=== PATIENT | female | born 1970 | race Caucasian/White ===

== ENCOUNTER 2025-03-11 13:03 | Outpatient (CLI) | payer BC, SELFPAY ==
--- OUTSIDE RECORDS SUMMARY | 2025-03-11 13:06 | XMS_ITS | Encounter Summary ---
Author Organization [facility] Address [facility] [place] [address] Care Team Providers Care German Instructor Name Role Phone Giovanny Medina MD Primary Care Provider [phone] Loren Whitlock RN Unavailable [phone] Madisyn Ennis MD Unavailable [phone] GeoffreyEmmett MD Primary Care Provider [phone] Giovanny Medina MD Unavailable [phone] Encounter Details Date Type Department Care Team (Late st Contact Info) Description 10/19/2014 Therapy Visit EXTERNAL NON-[facility] DEPT Unknown, Provider Social History Tobacco Use Types Packs/Day Years Used Date Smoking Tobacco: Former Cigarettes 0.5 11 0 12/23/2000 - 12/24/2011 Alcohol Use Standard Drinks/Week Comments Yes 0 (1 standard drink = 0.6 oz pur e alcohol) rare Comments No Sex and Gender Information Value Date Recorded Sex Assigned at Female 11/29/2021 8:25 AM CDT 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 Answer Date of Assessment Author No 04/13/2014 5:45 PM CDT Joseluis Herrmann RN * Is person blind or have serious difficulty seeing? Answer Date of Assessment Author No 04/13/2014 5:45 PM CDT Joseluis Herrmann RN * Does person have serious difficulty walking/climbing stairs? Answer Date of Assessment Author No 04/13/2014 5:45 PM CDT Joseluis Herrmann RN * Does person have difficulty dressing/bathing? Answer Date of Assessment Author No 04/13/2014 5:45 PM CDT Joseluis Herrmann RN * Does person have difficulty doing errands alone? Answer Date of Assessment Author No 04/13/2014 5:45 PM CDT Joseluis Herrmann RN documented as of this encounter Mental Status * Does person have difficulty concentrating/remembering/making decisions? Answer Entry Date Author No 04/13/2014 5:45 PM Joseluis Wallace RN documented in this encounter Plan of Treatment Not on file documented as of this encounter Goals Goal Patient Goal Type Associated Problems Recent Progress Patient-Stated? Author Have labs drawn Lifestyle On track(10/16/19 15 3:58 PM CDT) No Chanda Palma MA documented as of this encounter Visit Diagnoses Not on filedocumented in this encounter Care Teams German Instructor Relationship Specialty Start Date End Date Giovanny Medina MD [address] [place] [address] PCP - General 12/27/11 03/28/17 Emmett Hale MD [address] [facility] [place] [address] PCP - General Family Medicine 03/29/17 Giovanny Medina MD [address] [place] [address] PCP - Attributed-[facility] Commercial 11/02/18 11/02/18 Loren Whitlock RN Interpreter For The Deaf 04/13/14 Madisyn Ennis MD [address] [facility] [address] [place] [phone] Orthopedic Surgery 07/28/14 documented as of this encounter
--- OUTSIDE RECORDS SUMMARY | 2025-03-11 13:06 | XMS_ITS | Encounter Summary ---
Author Organization [facility] Address [facility] [place] [address] Care Team Providers Care Sheetmetal Trades Worker Name Role Phone Giovanny Medina MD Primary Care Provider [phone] Loren Whitlock RN Unavailable [phone] Madisyn Ennis MD Unavailable [phone] GeoffreyEmmett MD Primary Care Provider [phone] Giovanny Medina MD Unavailable [phone] Encounter Details Date Type Department Care Team (Late st Contact Info) Description 11/12/2014 Therapy Visit EXTERNAL NON-[facility] DEPT Madisyn Ennis MD [address] [facility] [address] [place] [address] Social History Tobacco Use Types Packs/Day Years Used Date Smoking Tobacco: Former Cigarettes 0.5 11 0 12/23/2000 - 12/24/2011 Alcohol Use Standard Drinks/Week Comments Yes 0 (1 standard drink = 0.6 oz pur e alcohol) rare Comments No Sex and Gender Information Value Date Recorded Sex Assigned at Female 11/29/2021 8:25 AM CDT Legal Sex Female 5:57 AM TRANSCRIPTION TYPIST Gender Identity Female 11/29/2021 8:25 AM CDT [...] Entry Date Author No 04/13/2014 5:45 PM CDT Joseluis Herrmann RN documented in this encounter Plan of Treatment Not on file documented as of this encounter Goals Goal Patient Goal Type Associated Problems Recent Progress Patient-Stated? Author Have labs drawn Lifestyle On track(10/16/19 15 3:58 PM CDT) No Chanda Palma MA documented as of this encounter Visit Diagnoses Not on filedocumented in this encounter Care Teams Sheetmetal Trades Worker Relationship Specialty Start Date End Date Giovanny Medina MD [address] [place] [address] PCP - General 12/27/11 03/28/17 Emmett Hale MD [address] [facility] [address] [place] [phone] PCP - General Family Medicine 03/29/17 Giovanny Medina MD [address] [place] [address] PCP - Attributed-[facility] Commercial 11/02/18 11/02/18 Loren Whitlock, RN Overhead Cleaner Maintainer 04/13/14 Madisyn Ennis MD [address] [facility] [address] [place] [phone] Orthopedic Surgery 07/28/14 documented as of this encounter
--- OUTSIDE RECORDS SUMMARY | 2025-03-11 13:06 | XMS_ITS | Encounter Summary ---
Author Organization [facility] Health Address [facility] [facility] 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 Answer Date of Assessment Author No 04/13/2014 5:45 PM Joseluis Wallace RN * Is person blind or have serious difficulty seeing? Answer Date of Assessment Author No 04/13/2014 5:45 PM Joseluis Wallace RN * Does person have serious difficulty walking/climbing stairs? Answer Date of Assessment Author No 04/13/2014 5:45 PM Joseluis Wallace RN * Does person have difficulty dressing/bathing? Answer Date of Assessment Author No 04/13/2014 5:45 PM Joseluis Wallace RN * Does person have difficulty doing errands alone? Answer Date of Assessment Author No 04/13/2014 5:45 PM Joseluis Wallace RN documented as of this encounter Mental Status * Does person have difficulty concentrating/remembering/making decisions? Answer Entry Date Author No 04/13/2014 5:45 PM Joseluis Wallace RN documented in this encounter Plan of Treatment Not on file documented as of this encounter Visit Diagnoses Not on filedocumented in this encounter Care Teams Physics Professor Relationship Specialty Start Date End Date Giovanny Medina MD [address] [place] [address] PCP - General 12/27/11 03/28/17 Emmett Hale MD [address] [facility] [address] [place] [address] PCP - General Family Medicine 03/29/17 Giovanny Medina MD [address] [place] [address] PCP - Counts Include [facility] Commercial 11/02/18 11/02/18 Loren Whitlock RN Plating Stripper 04/13/14 Madisyn Ennis MD [address] [facility] [address] [place] [address] Orthopedic Surgery 07/28/14 documented as of this encounter
--- OUTSIDE RECORDS SUMMARY | 2025-03-11 13:06 | XMS_ITS | Encounter Summary ---
Author Organization [facility] Health Address [facility] [place] [address] Care Team Providers Care Multiple Resaw Operator Name Role Phone Giovanny Medina MD Primary Care Provider [phone] Loren Whitlock RN Unavailable [phone] Madisyn Ennis MD Unavailable [phone] GeoffreyEmmett ritter MD Primary Care Provider [phone] Giovanny Medina MD Unavailable [phone] Encounter Details Date Type Department Care Team (Late st Contact Info) Description 11/05/2014 [facility] Outpatient Visit [facility] Health Orthopedics [address] [place], [place] [address] Madisyn Ennis MD [address] [place] [address] Social History Tobacco Use Types Packs/Day Years Used Date Smoking Tobacco: Former Cigarettes 0.5 11 0 12/23/2000 - 12/24/2011 Alcohol Use Standard Drinks/Week Comments Yes 0 (1 standard drink = 0.6 oz pur e alcohol) rare Comments No Sex and Gender Information Value Date Recorded Sex Assigned at Female 11/29/2021 8:25 AM CDT Legal Sex Female 5:57 AM MARKETING ANALYTICS SPECIALIST Gender Identity Female 11/29/2021 8:25 AM CDT [...] on filedocumented in this encounter Care Teams Multiple Resaw Operator Relationship Specialty Start Date End Date Giovanny Medina MD [address] [place] [address] PCP - General 12/27/11 03/28/17 Emmett Hale MD [address] [facility] [address] [place] [address] PCP - General Family Medicine 03/29/17 Giovanny Medina MD [address] [facility] [place] [address] PCP - Attributed-[facility] Commercial 11/02/18 11/02/18 Loren Whitlock, RN Arts Manager 04/13/14 Madisyn Ennis MD [address] [place] [phone] Orthopedic Surgery 07/28/14 documented as of this encounter
--- OUTSIDE RECORDS SUMMARY | 2025-03-11 13:06 | XMS_ITS | Encounter Summary ---
Author Organization [facility] Address [address] [place] [address] Care Team Providers Care Missile Technician Name Role Phone GeoffreyEmmett MD Primary Care Provider Encounter Details Date Type Department Care Team (Late st Contact Info) Description 03/10/2025 External Device Data [place] ABSTRACTION Provider, Abstract NO ADDRESS ON FILE Social History Tobacco Use Types Packs/Day Years Used Date Smoking Tobacco: Former Cigarettes 0.3 10 0 01/17/2016 - 07/21/2020 Alcohol Use Standard Drinks/Week Comments Yes 4 (1 standard drink = 0.6 oz pur e alcohol) social Feeling Safe Answer Date Recorded Are you in a relationship wi th someone who hurts you emotionally and/or physically? No 01/04/2024 Comments No Sex and Gender Information Value Date Recorded Sex Assigned at Not on file Legal Sex Female 5:13 AM INSTRUCTIONAL COACH Gender Identity Not on file Sexual Orientation Not on file documented as of this encounter Plan of Treatment Upcoming Encounters Date Type Department Care Team (Late st Contact Info) Description 07/09/2025 9:00 AM INSTRUCTIONAL COACH Office Visit [facility] Primary Care [address] [place] [address] GeoffreyEmmett MD [address] [place] [address] documented as of this encounter Visit Diagnoses Not on filedocumented in this encounter Additional Health Concerns Assessment Noted Time PHQ-9 Depression Total Score: 1 07/15/19 25 3:03 PM INSTRUCTIONAL COACH documented as of this encounter Care Teams Missile Technician Relationship Specialty Start Date End Date GeoffreyEmmett MD [address] [phone] PCP - General Family Practice 04/28/16 documented as of this encounter
--- OUTSIDE RECORDS SUMMARY | 2025-03-11 13:06 | XMS_ITS | Encounter Summary ---
Author Organization [facility] Address [address] [place] [address] Care Team Providers Care Visiting Nurse Name Role Phone Emmett Hale MD Primary Care Provider Encounter Details Date Type Department Care Team (Latest Contact Info) Description 06/06/2005 Outpatient Historical [facility] [place] [address] [place] [address] STREP SORE THROAT (Primary Dx) Social History Tobacco Use Types Packs/Day Years Used Date Smoking Tobacco: Never Assessed Comments Unknown Sex and Gender Information Value Date Recorded Sex Assigned at Not on file Legal Sex Female 5:13 AM FEEDER OPERATOR AUTOMATIC Gender Identity Not on file Sexual Orientation Not on file documented as of this encounter Plan of Treatment Upcoming Encounters Date Type Department Care Team (Late st Contact Info) Description 07/09/2025 9:00 AM FEEDER OPERATOR AUTOMATIC Office Visit [facility] Primary Care [place] [phone] [facility] [address] [place] [address] Emmett Hale MD [address] [facility] [address] [place] [address] documented as of this encounter Visit Diagnoses Diagnosis Streptococcal sore throat- Primary documented in this encounter Additional Health Concerns Infection Onset Date Last Indicated Resolved Time R/O COVID-19 02/16/2021 02/16/2021 02/16/2021 5:22 PM CDT documented as of this encounter Care Teams Visiting Nurse Relationship Specialty Start Date End Date Emmett Hale MD [address] [facility] [address] [place] [phone] PCP - General Family Practice 04/28/16 documented as of this encounter
--- OUTSIDE RECORDS SUMMARY | 2025-03-11 13:06 | XMS_ITS | Encounter Summary ---
Author Organization [facility] Address [address] [place] [address] Care Team Providers Care Sawmill Moulder Operator Name Role Phone Emmett Hale MD Primary Care Provider [phone] Encounter Details Date Type Department Care Team (Latest Contact Info) Description 09/07/2002 Outpatient Historical HIS [facility] Pamela Summers MD ACUTE PHARYNGITIS (Primary Dx) Social History Tobacco Use Types Packs/Day Years Used Date Smoking Tobacco: Never Assessed Comments Unknown Sex and Gender Information Value Date Recorded Sex Assigned at Not on file Legal Sex Female 5:13 AM CREDIT PRODUCTS OFFICER Gender Identity Not on file Sexual Orientation Not on file documented as of this encounter Plan of Treatment Upcoming Encounters Date Type Department Care Team (Late st Contact Info) Description 07/09/2025 9:00 AM CREDIT PRODUCTS OFFICER Office Visit [facility] Primary Care [place] [address] [facility] [address] [place] [address] Emmtet Hale MD [address] [facility] [address] [place] [address] documented as of this encounter Visit Diagnoses Diagnosis Acute pharyngitis- Primary documented in this encounter Additional Health Concerns Infection Onset Date Last Indicated Resolved Time R/O COVID-19 02/16/2021 02/16/2021 02/16/2021 5:22 PM CDT documented as of this encounter Care Teams Sawmill Moulder Operator Relationship Specialty Start Date End Date Emmett Hale MD [address] [facility] [address] [place] [address] PCP - General Family Practice 04/28/16 documented as of this encounter
--- OUTSIDE RECORDS SUMMARY | 2025-03-11 13:06 | XMS_ITS | Clinical Summary ---
Author Organization [facility] Address [address] [place] [address] Care Team Providers Care Emergency Worker Name Role Phone Geoffrey, Emmett Lynn MD Primary Care Provider [phone] Allergies Active Allergy Reactions Criticality Noted Date Comments Levofloxacin Swelling Low 04/28/2016 Lisinopril Cough Low 12/07/2017 TOMAS COUGH Medications Syringe with Needle, Disp, (BD Luer-Zurdo Syringe) 3 mL 25 gauge x 1 Syringe USE 1 EVERY MONTH 1 Each 3 023 Active fezolinetant 45 mg Tablet Take 45 mg by mouth daily. 023 Active calcium citrate 200 mg (950 mg) Tablet Take 400 mg by mouth daily. Active blood sugar diagnostic (OneTouch Verio test strips) StripIndication s:Type 2 diabetes mellitus with diabetic polyneuropathy, without long-term current use of insulin ([facility]) USE ONE TOUCH VERIO TEST STRIPS TWICE DAILY - DX E11.42. 200 Strip 3 025 Active empagliflozin (JARDIANCE) 25 mg tabletIndicatio ns:Type 2 diabetes mellitus with diabetic polyneuropathy, without long-term current use of insulin ([facility]) Take 1 Tablet (25 mg) by mouth daily in the morning. 100 Tablet 3 025 Active fluticasone propionate (Flovent HFA) 44 mcg/Actuation HFA Aerosol InhalerIndicati ons:Mild intermittent asthma without complication Take 2 Puffs by inhalation 2 times daily. 10.6 Gram 5 025 Active levothyroxine 50 mcg tabletIndicatio ns:Hypothyroidi sm, unspecified type Take 1 Tablet (50 mcg) by mouth daily. TAKE 1 TABLET BY MOUTH EVERY DAY IN THE [employer] JUDGE 100 Tablet 3 025 Active venlafaxine (EFFEXOR XR) 150 mg Extended Release 24 hour capsuleIndicati ons:Current moderate episode of major depressive disorder without prior episode (CMS/HCC) Take 1 Capsule (150 mg) by mouth daily. 100 Capsule 3 025 Active traZODone (DESYREL) 50 mg tabletIndicatio ns:Current moderate episode of major depressive disorder without prior episode (CMS/HCC) TAKE 1 TABLET BY MOUTH EVERYDAY AT BEDTIME 100 Tablet 3 025 Active estradioL (ESTRACE) 0.01% (0.1 mg/g) vaginal cream INSERT 1/2 GRAM INTO THE VAGINA AT BEDTIME X 2 WEEKS THEN TWICE A WEEK Active cyclobenzaprine (FLEXERIL) 10 mg tabletIndicatio ns:Lumbar strain, initial encounter Take 1 Tablet (10 mg) by mouth 3 times daily as needed for Discomfort. 30 Tablet 025 Active albuterol sulfate HFA 90 mcg/actuation aerosol inhalerIndicati ons:Mild intermittent asthma without complication Take 2 Puffs by inhalation every 4 hours as needed for Shortness of Breath. 8.5 Gram 5 025 Active semaglutide (Ozempic) 1 mg/dose (4 mg/3 mL) Pen InjectorIndicat ions:Type 2 diabetes mellitus with diabetic polyneuropathy, without long-term current use of insulin ([facility]) INJECT 1 MG SUBCUTANEOUSLY EVERY 7 DAYS 9 mL 1 025 Active ALPRAZolam (XANAX) 0.5 mg tabletIndicatio ns:Anxiety state TAKE 1 TABLET (0.5 MG) BY MOUTH 2 TIMES DAILY NEEDED FOR ANXIETY. TAKE 1 TABLET BY MOUTH #X A DAY NEEDED FOR ANXIETY 40 Tablet 025 Active ALPRAZolam (XANAX) 0.5 mg tabletIndicatio ns:Anxiety state Take 1 Tablet (0.5 mg) by mouth 2 times daily as needed for Anxiety. TAKE 1 TABLET BY MOUTH #X a day as needed for anxiety 40 Tablet 5 025 2024 Discontinued Active Problems Problem Noted Date Diagnosed Date Type 2 diabetes mellitus wit hout complication, without long-term current use of insulin 02/10/2022 Intestinal malabsorption following gastrectomy 0 07/14/2021 Current moderate episode of major depressive disorder without prior episode 05/30/2021 S/P gastric bypass 01/26/2021 Assessment & Plan (12/31/2024 9:50 AM CDT): - Patient is unable to take ibuprofen or Aleve secondary to gastric bypass Acquired hypothyroidism 05/24/2016 Resolved Problems Problem Noted Date Diagnosed Date Resolved Date Prediabetes 02/10/2022 02/10/2022 Chronic bilateral low back pain 07/15/2021 01/11/2022 Obesity (BMI 30.0-34.9) 06/21/202112/17 Asthma 08/11/2019 08/11/2019 Asthma 08/11/2019 01/11/2022 Type 2 diabetes mellitus wit h diabetic polyneuropathy, with long-term current use of insulin 05/27/2018 01/11/2022 Migraine without aura and wi thout status migrainosus, not intractable 12/07/2017 01/11/2022 Morbid obesity with body mas s index of 40.0-49.9 12/07/2017 06/21/2021 Cigarette dependence 03/03/2017 022 Severe obesity (BMI 35.0-39. 9) with comorbidity 03/03/2017 03/03/2017 Non morbid obesity due to excess calories 03/03/2017 12/07/2017 Type 2 diabetes mellitus wit hout complication, with long-term current use of insulin 05/24/2016 05/27/2018 Morbid obesity with body mas s index of 40.0-49.9 05/24/2016 03/03/2017 Backache 03/05/2009 07/15/2021 Insulin dose changed 021 Exertional dyspnea LUANA (obstructive sleep apnea) 01/11/2022 Hyperlipidemia 01/11/2022 Encounters Date Type Department Care Team Description 03/10/2025 External Device Data [facility] ABSTRACTION Provider, Abstract 03/10/2025 External Device Data [facility] ABSTRACTION Provider, Abstract 03/06/2025 Telephone [facility] [address] [place] [phone] Emmett Hale MD Medication Authorization 02/19/2025 Refill [facility] [address] [address] Emmett Hale MD Anxiety state 02/18/2025 External Device Data [facility] ABSTRACTION Provider, Abstract 02/05/2025 Refill [facility] Same Day [address] [address] Nydia Cunningham PA-C Lumbar strain, initial encounter 02/05/2025 Refill [facility] [address] [address] Emmett Hale MD Type 2 diabetes mellitus with diabetic polyneuropathy, without long-term current use of insulin ([facility]) 01/27/2025 Telephone [facility] Care [address] [address] Emmett Hale MD Medication Assistance 01/24/2025 Refill [facility] Care [address] [address] Emmett Hale MD Mild intermittent asthma without complication 01/21/2025 External Device Data [facility] ABSTRACTION Provider, Abstract 01/15/2025 Results Follow-Up [facility] [address] [address] Nydia Cunningham PA-C XR KNEE 3 VW LEFT, XR LUMBAR SPINE 4+ VW 01/14/2025 4:05 PM CDT - 01/14/2025 11:59 PM CDT Hospital Encounter [facility] [place] [address] [place] [phone] Nydia Cunningham PA-C Houser, Michael K, MD Discharge Disposition: Home or Self Care 12/31/2024 9:00 AM CDT Office Visit [facility] Same Day [place] [id number] [place] [address] Nydia Cunningham PA-C Chronic pain of left knee (Primary Dx); Lumbar strain, initial encounter; S/P gastric bypass 12/31/2024 External Device Data [facility] ABSTRACTION Provider, Abstract 12/31/2024 External Device Data [facility] ABSTRACTION Provider, Abstract 12/23/2024 Telephone [facility] [address] [place] [address] [address] [place] [address] Gisele Ramirez NP Appointment Correction 12/15/2024 Telephone [facility] [address] [place] [address] Geoffrey, Emmett Lynn MD Clinical Consult Before Scheduling from Last 3 Months Immunizations Immunization Administration Dates Next Due (ADACEL/BOOSTRIX)(10 YR UP) TDAP VACCINE, 0.5ML, IM 06/06/2011 (PREVNAR 20)(6 WKS UP) PNEUM OCOCCAL CONJUGATE VACCINE 20-VALENT (PCV20), POLYSACCHARIDE [id number] CONJUGATE, ADJUVANT 0.5 ML (PF) IM 05/21/2023 (SHINGRIX)(50 YRS UP) ZOSTER VACCINE RECOMBINANT, 0.5 ML, IM 07/15/2024,11/27/2022 INFLUENZA VACCINE QUADRIVALENT 3 YR UP PF IM 03/2018 INFLUENZA VACCINE QUADRIVALENT 6 MOS UP PF IM INFLUENZA VACCINE TRIVALENT MDCK, (6 MOS UP), 0.5ML (PF), IM 04/01/2024 Influenza Seasonal Unspecified Formulation IM ,03/22/2014 Influenza Vaccine 18+ C.derived Pf Im 05/13/2013 Influenza Vaccine Split 3+ Yrs PF IM 04/28/2016 Influenza Vaccine Tri Split 4+ Im 03/05/2009 Pneumococcal Polysaccharide Vacc 23-senia IM SCHIP 06/06/2011 Family History Medical History Relation Name Comments Unknown Father No Known Problems Half-Brother Colon Cancer Maternal Grandmother Diabetes Mother Healthy Mother Relation Name Status Comments Father Alive Half-Brother Alive Maternal Grandmother Mother Alive Social History Tobacco Use Types Packs/Day Years Used Date Smoking Tobacco: Former Cigarettes 0.3 10 0 01/17/2016 - 07/21/2020 Tobacco Cessation:Counseling Given: Not Answered Alcohol Use Standard Drinks/Week Comments Yes 4 (1 standard drink = 0.6 oz pur e alcohol) social Feeling Safe Answer Date Recorded Are you in a relationship wi th someone who hurts you emotionally and/or physically? No 01/04/2024 Comments No Sex and Gender Information Value Date Recorded Sex Assigned at Not on file Legal Sex Female 5:13 AM GAS DISPENSER Gender Identity Not on file Sexual Orientation Not on file Last Filed Vital Signs Vital Sign Reading Time Taken Comments Blood Pressure 96/60 12/31/2024 9:03 AM CDT Pulse 79 12/31/2024 9:03 AM CDT Temperature 36.2 C (97.2 F) 12/31/2024 9:03 AM CDT Respiratory Rate 16 12/31/2024 9:03 AM CDT Oxygen Saturation 96% 12/31/2024 9:03 AM CDT Inhaled Oxygen Concentration - - Weight 65.2 kg (143 lb 12.8 oz) 12/31/2024 9:03 AM CDT Height 152.4 cm (5') 12/31/2024 9:03 AM CDT Body Mass Index 28.08 12/31/2024 9:03 AM CDT Plan of Treatment Upcoming Encounters Date Type Department Care Team (Late st Contact Info) Description 07/09/2025 9:00 AM GAS DISPENSER Office Visit [facility] [address] [place] [address] GeoffreyEmmett MD [address] [facility] [address] [place] [address] Health Maintenance Due Date Last Done Comments HEPATITIS B VACCINES (1 of 3 - 19+ 3-dose series) 1991 HPV/Cotest (21-29) 1993 HPV/Cotest (30-65) 2002 FIT-DNA Q 3 years 2017 FIT/FOBT Q 1 year 2017 Flex Sig/CT Colonography Q 5 years 2017 DTAP/TDAP/TD VACCINES (2 - T d or Tdap) 06/06/2021 06/06/2011 DIABETES ANNUAL RETINAL EXAM 09/04/2024, 09/05/2023, 07/10/2022, Additional history exists BREAST CANCER SCREENING 01/08/2025 01/09/20, 01/09/2024, 02/12/2023, Additional history exists INFLUENZA VACCINE (#1) 2025 , 05/21/2023, 05/27/2018, Additional history exists DIABETES HBA1C Q 6 MONTHS 04/02/20252024, 01/09/2024, 11/08/2023, Additional history exists DIABETES ANNUAL FOOT EXAM 07/15/20252024, 10/12/2023, 05/21/2023, Additional history exists DIABETES MICROALBUMIN ANNUAL SCREEN 10/01/2025 10/01/2024, 06/23/2023, 08/18/2021, Additional history exists DIABETES: A1C (Auto Order) 10/01/202510/01, 01/09/2024, 11/08/2023, Additional history exists LDL CHOLESTEROL ANNUAL 10/01/2025 , 06/23/2023, 08/18/2021, Additional history exists CERVICAL CANCER SCREENING 10/01/2026 PAP SMEAR 10/01/2026 10/02/2023, 07/19, 05/29/2019 COLORECTAL SCREENING 01/03/2034 01/04/2024, 01/04/2024, 01/04/2024, Additional history exists Colorectal Cancer Screening 01/03/2034 ZOSTER VACCINE Completed 07/15/2024, 11/27/2022 Preventative Visit- Commercial Completed 0 10/22/2024, 07/15/2024, 10/02/2023, Additional history exists Medical Devices Implanted Type Area Society Editor Device Identifier Shelf Expiration Date Model / Serial / Lot Mesh Abdomen Procedures Procedure Name Priority Date/Time Associated Diagnosis Comments XR KNEE 3 VW LEFT Routine 01/14/2025 4:3 6 PM CDT Chronic pain of left knee XR LUMBAR SPINE 4+ VW Routine 01/14/2025 4:36 PM CDT Chronic pain of left knee Lumbar strain, initial encounter MICROALBUMIN/CREATIN INE RATIO, RANDOM UR Routine 10/01/2024 8:40 AM CDT LIPID PANEL Routine 10/01/2024 8:36 AM CDT Type 2 diabetes mellitus with diabetic polyneuropathy, without long-term current use of insulin ([facility]) HEMOGLOBIN A1C Routine 10/01/2024 8:36 AM CDT Type 2 diabetes mellitus with diabetic polyneuropathy, without long-term current use of insulin ([facility]) COLONOSCOPY REPORT 01/04/2024 7: 52 AM CDT HM PAP SMEAR Routine 10/02/2023 9:01 AM CDT IL BILAT DIL RETINAL EXAM Routine 09/05/2023 8:37 AM CDT MAMMO 3D JENNA SCREEN BILAT W OR WO CAD Routine 02/12/2023 5:44 PM CDT Visit for screening mammogram from Last 3 Months or Most Recently Relevant to Health Maintenance Results * XR KNEE 3 VW LEFT (01/14/2025 4:36 PM CDT) Anatomical Region Laterality Modality Lower Extremity Computed Radiogr aphy 01/14/2025 4:37 PM CDT Impressions 01/14/2025 6:16 PM CDT IMPRESSION: 1. Normal radiographs of the left knee. DICTATION LOCATION: Location 1 - [facility] Narrative 01/14/2025 6:16 PM CDT EXAMINATION: X-RAY KNEE 3 VIEWS LEFT DATE: 01/14/2025 4:36 PM HISTORY: Knee pain. COMPARISON: None. FINDINGS: 3 views of the left knee are submitted. The left knee is normally aligned. Joint spaces are normal. No acute fracture is seen. No radiopaque foreign body. There is no radiographically apparent knee effusion. Procedure Note Antoine Powell MD - 07/30/2025 EXAMINATION: X-RAY KNEE 3 VIEWS LEFT DATE: 01/14/2025 4:36 PM HISTORY: Knee pain. COMPARISON: None. FINDINGS: 3 views of the left knee are submitted. The left knee is normally aligned. Joint spaces are normal. No acute fracture is seen. No radiopaque foreign body. There is no radiographically apparent knee effusion. IMPRESSION: 1. Normal radiographs of the left knee. DICTATION LOCATION: [address] Nydia Cunningham PA-C DIAGNOSTIC IMAGING ORDER ELIZABETH Final Result * XR LUMBAR SPINE 4+ VW (01/14/2025 4:36 PM CDT) Anatomical Region Laterality Modality Spine Computed Radiogr aphy 01/14/2025 4:37 PM CDT Impressions 01/16/2025 10:56 AM CDT IMPRESSION: Mild lumbar degenerative disc and joint disease. DICTATION LOCATION: [address] Narrative 01/16/2025 10:56 AM CDT EXAMINATION: XR LUMBAR SPINE 4+ VW HISTORY: See Diagnosis. Chronic pain of left knee; Chronic pain of left knee; Lumbar strain, initial encounter FINDINGS: The alignment is normal. The vertebral body heights are normal. There is mild multilevel degenerative disc disease from L3-4 through L5-S1. There is mild lower lumbar facet osteoarthritis. Procedure Note Avery Torres MD - 01/16/2025 EXAMINATION: XR LUMBAR SPINE 4+ VW HISTORY: See Diagnosis. Chronic pain of left knee; Chronic pain of left knee; Lumbar strain, initial encounter FINDINGS: The alignment is normal. The vertebral body heights are normal. There is mild multilevel degenerative disc disease from L3-4 through L5-S1. There is mild lower lumbar facet osteoarthritis. IMPRESSION: Mild lumbar degenerative disc and joint disease. DICTATION LOCATION: Location [address] [place] [address] Nydia Cunningham PA-C DIAGNOSTIC IMAGING ORDER ELIZABETH Final Result * MICROALBUMIN/CREATININE RATIO, RANDOM UR (10/01/2024 8:40 AM CDT) CREATININE, URINE 103 20 - 275 mg/dL [facility] ALBUMIN, URINE 0.4 See Note: mg/dL [facility] Comment: Reference Range: Reference Range Not established ALB/CREAT RATIO, URINE 4 <30 mg/g creat [facility] Comment: The ADA defines abnormalities in albumin excretion as follows: Albuminuria Category Result (mg/g creatinine) Normal to Mildly increased <30 Moderately increased 30-299 Severely increased > OR = 300 The ADA recommends that at least two of three specimens collected within a 3-6 month period be abnormal before considering a patient to be within a diagnostic category. Test Performed at: [facility] [address] [facility] [place] [address] Rohit Ga MD Urine URINE SPECIMEN OBTAINED BY CLEAN CATCH PROCEDURE / Unknown 10/01/2024 8:40 AM CDT 10/01/2024 8:41 AM CDT Emmett Hale MD URINE ORDERABLES [facility] Resul t [facility] [phone] [facility] [address] [address] [facility] [address] * (ABNORMAL) HEMOGLOBIN A1C (10/01/2024 8:36 AM CDT) HEMOGLOBIN A1C 5.9(H) <5.7 % of total Hgb [facility] Comment: For someone without known diabetes, a hemoglobin A1c value between 5.7% and 6.4% is consistent with prediabetes and should be confirmed with a follow-up test. For someone with known diabetes, a value <7% indicates that their diabetes is well controlled. A1c targets should be individualized based on duration of diabetes, age, comorbid conditions, and other considerations. This assay result is consistent with an increased risk of diabetes. Currently, no consensus exists regarding use of hemoglobin A1c for diagnosis of diabetes for children. ESTIMATED AVERAGE GLUCOSE (MG/DL) 123 mg/dL [facility] ESTIMATED AVERAGE GLUCOSE (MMOL/L) 6.8 mmol/L [facility] Comment: FASTING:YES FASTING: YES Test Performed at: [facility] [address] [place] [address] [facility] Blood 10/01/2024 8:36 AM CDT 10/01/2024 8:38 AM CDT Emmett Hale MD CHEMISTRY ORDERABLES Final R esult Performing Organization Address City/State/ZIP [facility] Phone Number [facility] [phone] [facility] [address] [place] [address] * (ABNORMAL) LIPID PANEL (10/01/2024 8:36 AM CDT) CHOLESTEROL 209(H) <200 mg/dL [facility] HDL 55 > OR = 50 mg/dL [facility] TRIGLYCERIDE 124 <150 mg/dL [facility] LDL CALCULATED 131(H) mg/dL (calc) [facility] Comment: Reference range: <100 Desirable range <100 mg/dL for primary prevention; <70 mg/dL for patients with CHD or diabetic patients with > or = 2 CHD risk factors. LDL-C is now calculated using the Penny calculation, which is a validated novel method providing better accuracy than the Friedewald equation in the estimation of LDL-C. Mynor SS et al. JUSTINA. 2013;310(19): 8174-8011 (http://education.[employer]/faq/XHO346) CHOL/HDL RATIO 3.8 <5.0 (calc) [facility] NON-HDL CHOLESTEROL 154(H) <130 mg/dL (calc) [facility] Comment: For patients with diabetes plus 1 major ASCVD risk factor, treating to a non-HDL-C goal of <100 mg/dL (LDL-C of <70 mg/dL) is considered a therapeutic option. Test Performed at: [facility] [address] [place] [address] [facility] Blood 10/01/2024 8:36 AM CDT 10/01/2024 8:38 AM CDT Emmett Hale MD CHEMISTRY ORDERABLES Final R esult Performing Organization Address City/State/[facility] Code Phone Number [facility] [phone] [facility] [address] [place] [address] * COLONOSCOPY REPORT (01/04/2024 7:52 AM CDT) Narrative Procedure Note Mary Gray MD - 01/04/2024 7:52 AM CDT [facility] Endoscopy Patient Name: Jolene Burden Procedure Date: 01/04/2024 Date of : 1970 Attending MD: Mary Gray MD, Procedure: Colonoscopy Indications: Screening for colorectal malignant neoplasm Providers: Mary Gray MD Referring MD: Emmett Hale MD Medicines: Monitored Anesthesia Care Complications: No immediate complications. Procedure: Informed consent was obtained for the procedure, including moderate sedation after risks were discussed. Based on the pre-procedure assessment, including review of the patient's medical history, medications, allergies, and review of systems, the patient was deemed to be an appropriate candidate for sedation. A timeout was performed. Continuous ECG monitoring, pulse oximetry, blood pressure monitoring, and direct observation were performed. The Colonoscope was introduced through the anus and advanced to the cecum, identified by appendiceal orifice and ileocecal valve. The colonoscopy was performed without difficulty. The patient tolerated the procedure well. The quality of the bowel preparation was excellent. The ileocecal valve, the appendiceal orifice and the rectum were photographed. Estimated Blood Loss: Estimated blood loss was minimal. Findings: The perianal and digital rectal examinations were normal. Three sessile polyps were found in the transverse colon. The polyps were small in size. These polyps were removed with a cold snare. Resection and retrieval were complete. The retroflexed view of the distal rectum and anal verge was normal and showed no anal or rectal abnormalities. Impression: - Three small polyps in the transverse colon, removed with a cold snare. Resected and retrieved. - The distal rectum and anal verge are normal on retroflexion view. Recommendation: - Discharge patient to home (ambulatory). - Resume previous diet. - Continue present medications. - Await pathology results. - Repeat colonoscopy in 5 years for surveillance. - Return to primary care physician PRN. Mary Gray MD 01/04/2024 7:52:08 AM Number of Addenda: [address]; [place] [address] us Mary Gray MD GI PROCEDURE ORDERA BLES Final Result * HM PAP SMEAR (10/02/2023 9:01 AM CDT) us Abstract Provider HEALTH MAINTENANCE Edited Resu lt - Final Performing Organization Address [facility]/ZIP Co de Phone Number [facility] CLIA #[id number] [address] [place] [phone] * (ABNORMAL) IL BILAT DIL RETINAL EXAM (09/05/2023 8:37 AM CDT) Abstract Provider [place] - MEDICAL SERVICES Edited R esult - Final Performing Organization Address City/[facility]/ZIP Co de Phone Number DR KRISTAL TOVAR CLIA# [id number] [address] [facility] [address] [place] [phone] * MAMMO SCRN BILAT 3D JENNA W OR WO CAD (02/12/2023 5:44 PM CDT) Anatomical Region Laterality Modality Breast Bilateral Mammography 02/12/2023 5:44 PM CDT Addenda Addendum by Jorge Fischer MD on 02/22/2023 3:18 PM CDT ADDENDUM: Comparison is made to the outside mammograms dated 07/17/2017 and 12/11/2020. There is no suspicious mass or microcalcification. Several bilateral dystrophic calcifications are redemonstrated. Annual screening mammography recommended. OVERALL FINAL ASSESSMENT: BI-RADS CATEGORY 2: Benign findings. Impressions 02/13/2023 8:07 AM CDT IMPRESSION: No prior films are currently available for comparison. The prior films will be requested and once received, an addendum will be made. OVERALL FINAL ASSESSMENT: BI-RADS CATEGORY 0 - Incomplete, needs comparison to prior mammograms. DICTATION LOCATION: [facility] Narrative 02/13/2023 8:07 AM CDT BILATERAL SCREENING DIGITAL MAMMOGRAM WITH 3D TOMOSYNTHESIS AND CAD DATE: 02/12/2023 5:44 PM HISTORY: Annual screening study. TECHNIQUE: Low-dose full-field digital breast tomosynthesis examination was performed with 2D and 3D acquisitions. Examination is read in conjunction with computer aided detection. FINDINGS: Comparison films are not available. The breast parenchyma has scattered fibroglandular densities. Procedure Note Jorge Fischer MD - 02/13/2023 BILATERAL SCREENING DIGITAL MAMMOGRAM WITH 3D TOMOSYNTHESIS AND CAD DATE: 02/12/2023 5:44 PM HISTORY: Annual screening study. TECHNIQUE: Low-dose full-field digital breast tomosynthesis examination was performed with 2D and 3D acquisitions. Examination is read in conjunction with computer aided detection. FINDINGS: Comparison films are not available. The breast parenchyma has scattered fibroglandular densities. IMPRESSION: No prior films are currently available for comparison. The prior films will be requested and once received, an addendum will be made. OVERALL FINAL ASSESSMENT: BI-RADS CATEGORY 0 - Incomplete, needs comparison to prior mammograms. DICTATION LOCATION: [facility] Emmett Hale MD MAMMO ORDERABLES Edited Resu lt - Final from Last 3 Months or Most Recently Relevant to Health Maintenance Insurance [employer] [facility] Commercial Advance Directives For more information, please contact: [phone] * Full Code (Latest Code Status on File) Date Activated Date Inactivated Comments 01/04/2024 7:01 AM 01/04/2024 10:43 AM * Default Full Code - Needs Discussion Date Activated Date Inactivated Comments 02/16/2021 10:17 PM 02/17/2021 4:55 PM * Full Code Date Activated Date Inactivated Comments 01/11/2021 5:22 PM 01/12/2021 5:06 PM * Full Code Date Activated Date Inactivated Comments 01/11/2021 11:30 AM 01/11/2021 5:22 PM * Full Code Date Activated Date Inactivated Comments 09/24/2020 9:51 AM 09/24/2020 1:45 PM Care Teams Emergency Worker Relationship Specialty Start Date End Date Emmett Hale MD [address] [address] PCP - General Family Practice 04/28/16
--- OUTSIDE RECORDS SUMMARY | 2025-03-11 13:06 | XMS_ITS | Encounter Summary ---
Author Organization [facility] Health Address [facility] [place] [address] Care Team Providers Care Bullard Operator Name Role Phone Loren Whitlock RN Unavailable [phone] Madisyn Ennis MD Unavailable [phone] GeoffreyEmmett MD Primary Care Provider [phone] Giovanny Medina MD Unavailable [phone] Encounter Details Date Type Department Care Team (Late st Contact Info) Description 05/02/2018 [facility] Outpatient Visit [facility] Orthopedics - Radiology [address] [place] [address] Madisyn Ennis MD [address] [facility] [address] [place] [address] Social History Tobacco Use Types Packs/Day Years Used Date Smoking Tobacco: Former Cigarettes 0.5 11 0 12/23/2000 - 12/24/2011 Alcohol Use Standard Drinks/Week Comments Yes 0 (1 standard drink = 0.6 oz pur e alcohol) rare Comments No Sex and Gender Information Value Date Recorded Sex Assigned at Female 11/29/2021 8:25 AM CDT Legal Sex Female 5:57 AM SERVICE DESK LEAD Gender Identity Female 11/29/2021 8:25 AM CDT [...] of Assessment Author No 04/13/2014 5:45 PM LUZT Joseluis Herrmann RN documented as of this [...] on filedocumented in this encounter Care Teams Bullard Operator Relationship Specialty Start Date End Date Emmett Hale MD [facility] [facility] [address] [place] [address] PCP - General Family Medicine 03/29/17 Giovanny Medina MD [address] [place] [address] PCP - Attributed-[facility] Commercial 11/02/18 11/02/18 Loren Whitlock RN Auto Transport Driver 04/13/14 Madisyn Ennis MD [address] [facility] [address] [place] [address] Orthopedic Surgery 07/28/14 documented as of this encounter
--- OUTSIDE RECORDS SUMMARY | 2025-03-11 13:06 | XMS_ITS | Encounter Summary ---
Author Organization [facility] Address [address] [place] [address] Care Team Providers Care Transport Operations Inspector Name Role Phone Emmett Hale MD Primary Care Provider [phone] Encounter Details Date Type Department Care Team (Latest Contact Info) Description 06/08/2005 Outpatient Historical [facility] Pamela Summers MD ACUTE TONSILLITIS (Primary Dx) Social History Tobacco Use Types Packs/Day Years Used Date Smoking Tobacco: Never Assessed Comments Unknown Sex and Gender Information Value Date Recorded Sex Assigned at Not on file Legal Sex Female 5:13 AM DECATIZER Gender Identity Not on file Sexual Orientation Not on file documented as of this encounter Plan of Treatment Upcoming Encounters Date Type Department Care Team (Late st Contact Info) Description 07/09/2025 9:00 AM DECATIZER Office Visit [facility] Primary Care [place] [address] [facility] [address] [place] [address] Emmett Hale MD [address] [facility] [address] [place] [address] documented as of this encounter Visit Diagnoses Diagnosis Acute tonsillitis- Primary documented in this encounter Additional Health Concerns Infection Onset Date Last Indicated Resolved Time R/O COVID-19 02/16/2021 02/16/2021 02/16/2021 5:22 PM CDT documented as of this encounter Care Teams Transport Operations Inspector Relationship Specialty Start Date End Date Emmett Hale MD [address] [facility] [address] [place] [address] PCP - General Family Practice 04/28/16 documented as of this encounter
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
--- OUTSIDE RECORDS SUMMARY | 2025-03-11 13:06 | XMS_ITS | Encounter Summary ---
Author Organization [facility] Address [address] [place] [address] Care Team Providers Care Administrative Nursing Supervisor Name Role Phone GeoffreyEmmett MD Primary Care Provider [phone] Encounter Details Date Type Department Care Team [...] on file Legal Sex Female 5:13 AM MACHINE OPERATOR GENERAL Gender Identity Not on file Sexual Orientation Not on file documented as of this encounter Plan of Treatment Upcoming Encounters Date Type Department Care Team (Late st Contact Info) Description 07/09/2025 9:00 AM MACHINE OPERATOR GENERAL Office Visit [facility] Primary Care [address] [place] [phone] GeoffreyEmmett MD [address] [place] [phone] documented as of this encounter Visit Diagnoses Not on filedocumented in this encounter Additional Health Concerns Assessment Noted Time PHQ-9 Depression Total Score: 1 07/15/19 25 3:03 PM MACHINE OPERATOR GENERAL documented as of this encounter Care Teams Administrative Nursing Supervisor Relationship Specialty Start Date End Date GeoffreyEmmett MD [address] [phone] PCP - General Family Practice 04/28/16 documented as of this encounter
== END 2025-03-11 13:04 | disposition home or self-care (01) ==
LOC: ANHAUDIO 13:03
PROVIDERS: Visit Provider Otolaryngology
DX: H93.13 Tinnitus, bilateral (principal)
CPT/HCPCS: 92557; 92567